=== PATIENT | female | born 1970 | race Two or more races ===

== ENCOUNTER 2021-01-28 13:49 | Emergency (ER) | payer OTHER ==
[2021-01-28 14:15] VITALS: BP 122/90; PULSE 67; TEMP 98.2; BMI 27.1
[2021-01-28] MEDS ORDERED: BAMLANIVIMAB 700 MG, ETESEVIMAB 1,400 MG in SODIUM CHLORIDE 250 ML IVPB ONE (15:02)
== END 2021-01-28 20:55 | disposition home or self-care (01) ==
LOC: JCOVINFU 13:49 → JER 13:49
DX: U07.1 COVID-19 (principal)
CPT/HCPCS: 99284-25; M0239; Q0239; Q0245